=== PATIENT | male | born 1985 | race Caucasian/White ===

== ENCOUNTER 2020-11-07 18:01 | Emergency (ER) | payer SELFPAY ==
[~2020-11-07] VITALS: Ht 160 cm; Wt 63.0 kg
[2020-11-07] MEDS ORDERED: IBUPROFEN 400MG TABLET PO ONE (19:30)
[2020-11-07] MEDS ORDERED: IBUP-2028 MT (20:59)
[2020-11-07 21:31] VITALS: BP 127/86
== END 2020-11-07 21:40 | disposition home or self-care (01) ==
LOC: ER 18:06
DX: M54.5 Low back pain (principal); M25.512 Pain in left shoulder; V49.59XA Passenger injured in collision with other motor vehicles in traffic accident, initial encounter; Y93.89 Activity, other specified; Y92.89 Other specified places as the place of occurrence of the external cause; Y99.8 Other external cause status
CPT/HCPCS: 72100; 73030; 99284